=== PATIENT | male | born 1930 | race Caucasian/White ===

== ENCOUNTER 2018-10-20 20:45 | Emergency (ER) | payer OTHER ==
[~2018-10-20] VITALS: Ht 165.1 cm; Wt 65.5 kg
[2018-10-20 20:58] VITALS: Ht 165.1 cm; Wt 65.5 kg
[2018-10-20] MEDS ORDERED: SOD CHLORIDE 0.9% 500 ML IV STA ×2 (21:44→23:28)
--- NOTE | 2018-10-20 21:47 | ERD ---
ER Documentation Chief Complaint Chief Complaint bib ra for diarrhea and weakness x 1 day HPI 88-year-old male history of diabetes, hypertension lipidemia, atrial fibrillation on Coumadin, CHF, ischemic cardiomyopathy with EF of 25 to 30%, coronary artery disease status post PCI and stent and presence of AICD presents to the ED complaining of a 2 day history of worsening, watery, nonbloody, nonmucoid diarrhea with generalized weakness. No recent travel, ill contacts or spoiled food exposure. Denies abdominal pain, nausea, vomiting, diarrhea constipation. No chest pain or palpitations. Denies shortness of breath or cough. No leg pain or swelling. No fevers or chills. ROS All systems reviewed and are negative except as per history of present illness. PMhx/Soc Reviewed History of Surgery: Yes (left upper chest ) Anesthesia Reaction: No Hx Cardiac Disorders: Yes (hypotension) Hx Miscellaneous Medical Probl: Yes Hx Alcohol Use: No Hx Substance Use: No Hx Tobacco Use: No Smoking Status: Never smoker FmHx No family history relevant to presenting complaint Physical Exam Vitals Vital Signs Date Temp Pulse Resp B/P (MAP) Pulse Ox O2 O2 Flow FiO2 Time Delivery Rate 10/21/18 98.0 91 16 106/68 97 Room Air 00:19 (81) 10/20/18 96 19 89/55 (66) 97 Room Air 22:38 10/20/18 98.6 98 16 89/47 (61) 96 20:58 Physical Exam Const: Mild distress, elderly Head: Atraumatic Eyes: Pupils equal react to light, extraocular movements are intact. Normal Conjunctiva ENT: Normal External Ears, Nose and Mouth. Mucous membranes are moist. No erythema or exudate. Neck: Full range of motion. No JVD. Nontender. Resp: Breath sounds are equal and clear to auscultation bilaterally Cardio: Irregular rate and rhythm, no murmurs Abd: Soft, non tender, non distended. No rebound or guarding. No masses or abnormal pulsations. Normal bowel sounds Skin: No petechiae or rashes Back: No midline or flank tenderness Ext: No cyanosis, or edema. No calf swelling or tenderness. Neur: Awake and alert. Normal mental status for age. Focal deficit observed. Psych: Normal Mood and Affect. Patient does not appear anxious or depressed. Result Diagram: 10/20/18215210/20/182152 Results 24 hrs Laboratory Tests Test 10/20/18 21:52 10/20/18 21:53 10/21/18 00:15 Digoxin Level 0.6 ng/ml White Blood Count 7.3 10^3/ul Red Blood Count 3.47 10^6/ul Hemoglobin 10.2 g/dl Hematocrit 31.4 % Mean Corpuscular Volume 90.5 fl Mean Corpuscular Hemoglobin 29.4 pg Mean Corpuscular 32.5 g/dl Hemoglobin Concent Red Cell Distribution Width 13.9 % Platelet Count 141 10^3/UL Mean Platelet Volume 11.7 fl Immature Granulocytes % 0.300 % Neutrophils % 78.3 % Lymphocytes % 10.1 % Monocytes % 10.8 % Eosinophils % 0.1 % Basophils % 0.4 % Nucleated Red Blood Cells % 0.0 /100WBC Immature Granulocytes # 0.020 10^3/ul Neutrophils # 5.7 10^3/ul Lymphocytes # 0.7 10^3/ul Monocytes # 0.8 10^3/ul Eosinophils # 0.0 10^3/ul Basophils # 0.0 10^3/ul Nucleated Red Blood Cells # 0.0 10^3/ul Prothrombin Time 31.8 Sec Prothrombin Time Ratio 2.5 INR International Normalized Ratio 3.08 Sodium Level 136 mmol/L Potassium Level 4.3 mmol/L Chloride Level 100 mmol/L Carbon Dioxide Level 25 mmol/L Anion Gap 11 Blood Urea Nitrogen 30 mg/dl Creatinine 1.51 mg/dl Est Glomerular Filtrat Rate mL/min mL/min Glucose Level 176 mg/dl Calcium Level 8.8 mg/dl Total Bilirubin 0.4 mg/dl Direct Bilirubin 0.00 mg/dl Indirect Bilirubin 0.4 mg/dl Aspartate Amino Transf (AST/SGOT) 46 IU/L Alanine 23 IU/L Aminotransferase (ALT/SGPT) Alkaline Phosphatase 73 IU/L Troponin I 0.260 ng/ml Total Protein 7.5 g/dl Albumin 4.1 g/dl Globulin 3.40 g/dl Albumin/Globulin Ratio 1.20 Lipase 32 U/L POC Venous Lactate 1.9 mmol/L Current Medications Medications Dose Sig/Alisa Start Time Status Last (Trade) Ordered Route PRN Stop Time Admin Dose Reason Admin Sodium 500 ml @ Q1H STAT 10/20/18 DC 10/20/18 Chloride 500 mls/hr IV 21:44 21:50 10/20/18 22:43 Aspirin 325 mg ONCE ONCE 10/20/18 DC 10/20/18 (Aspirin) PO 23:30 23:32 10/20/18 23:31 Sodium 500 ml @ Q1H STAT 10/20/18 DC 10/20/18 Chloride 500 mls/hr IV 23:28 23:34 10/21/18 00:27 Procedures/MDM DOCUMENTS REVIEWED: ED nurse, Prince bunn. EKG: Time: 21: 55. Atrial fibrillation. Ventricular rate 92. Left bundle branch block. No Sgarbossa criteria for ischemia. No ectopy. My Interpreta tion Chest AP portable: Cardiomegaly. Cardiac rhythm device with wires intact. Costophrenic angles are clear. [employer]KIN-year-old male history of diabetes, hypertension lipidemia, atrial fibrillation on Coumadin, CHF, ischemic cardiomyopathy with EF of 25 to 30%, coronary artery disease status post PCI and stent and presence of AICD presents to the ED complaining of a 2 day history of worsening, watery, nonbloody, non-mucoid diarrhea with generalized weakness. CBC reveals mild anemia but no leukocytosis or thrombocytopenia. Chemistry remarkable for mild hyperglycemia of 176 mg/dL, elevated BUN/creatinine of 30/1.5, baseline unknown but no electrolyte abnormalities. Troponin is elevated 0.26. EKG consistent with history of atrial fibrillation and left bundle branch block but is negative for acute ischemia. Abdominal exam is completely benign without significant tenderness, rebound, guarding or signs of peritonitis hence advanced imaging is deferred. Patient treated with gentle IV hydration through total of 1 L and blood pressure improved to 106 systolic. Troponin elevation consistent with non-ST segment elevation myocardial infarction and aspirin is given. Patient will require transfer to higher level of care facility with cardiac cath capability. Discussed with Prince Toribio. Case #[id number]. We will arrange for acute care transfer. CALLS/CONSULTS: Time: 23:28, Dr. Prince CARDENAS Counseled patient regarding diagnosis, diagnostic results and plan for transfer. Departure Diagnosis: Primary Impression: NSTEMI (non-ST elevated myocardial infarction) Additional Impressions: Diarrhea Diarrhea type: unspecified type Qualified Codes: R19.7 - Diarrhea, unspecified Chronic atrial fibrillation Dehydration Diabetes mellitus type 2 in nonobese Condition: Serious NATHANIEL LOYOLA MD 25, 2019 21:47
[2018-10-20] MEDS ORDERED: ASPIRIN 325 MG TAB PO ONE (23:30)
[2018-10-21] MEDS ORDERED: METF500T PO (02:11)
[2018-10-21] MEDS ORDERED: WARF5TAB PO (02:11)
[2018-10-21] MEDS ORDERED: FAMO-142 PO (02:11)
[2018-10-21] MEDS ORDERED: FURO20TA3 PO (02:11)
[2018-10-21] MEDS ORDERED: TERA10CA3 PO (02:11)
[2018-10-21] MEDS ORDERED: ISOS30TA67 PO (02:11)
[2018-10-21] MEDS ORDERED: TROS20TA2 PO (02:11)
[2018-10-21] MEDS ORDERED: ATOR40TA68 PO (02:11)
[2018-10-21] MEDS ORDERED: DIGO125T PO (02:11)
[2018-10-21] MEDS ORDERED: LISI2.5T59 PO (02:11)
[2018-10-21] MEDS ORDERED: CHOL100062 PO (02:27)
[2018-10-21] MEDS ORDERED: MULT1TAB10 PO (02:27)
[2018-10-21] MEDS ORDERED: FER325 PO (02:27)
[2018-10-21] MEDS ORDERED: ASPI-535 PO (02:27)
[2018-10-21 02:50] VITALS: BP 111/63; PULSE 94; RESP 14
== END 2018-10-21 02:50 | disposition short-term general hospital (02) ==
LOC: E/R 20:45
DX: I21.4 Non-ST elevation (NSTEMI) myocardial infarction (principal); I25.10 Atherosclerotic heart disease of native coronary artery without angina pectoris; I11.0 Hypertensive heart disease with heart failure; I50.9 Heart failure, unspecified; E11.9 Type 2 diabetes mellitus without complications; E86.0 Dehydration; I48.2 Chronic atrial fibrillation; Z79.01 Long term (current) use of anticoagulants
CPT/HCPCS: 36415; 71045; 80053; 80162; 83605; 83690; 84484; 85025; 85610; 93005; 99285; J7040